=== PATIENT | female | born 1990 | race African-American/Black ===

== ENCOUNTER 2020-08-22 14:53 | Emergency (ER) | payer OTHER ==
[~2020-08-22] VITALS: Ht 167.6 cm; Wt 132.0 kg
[2020-08-22] MEDS ORDERED: KETOROLAC 30MG/ML VIAL IV STA (15:48)
[2020-08-22] MEDS ORDERED: SODIUM CHLORIDE 0.9% 1,000 ML IV ONE (16:00)
[2020-08-22 16:17] LABS: BASOPHILS % 0.5 % (0.0-2.0); EOSINOPHILS % 0.7 % (0.0-5.0); HEMOGLOBIN. 11.3 g/dL (12.0-16.0); LYMPHOCYTES % 29.4 % (20.0-50.0); MEAN CORPUSCULAR HEMOGLOBIN 28.3 pg (28.0-32.0); MEAN CORPUSCULAR VOLUME 84.9 fL (81.0-99.0); MEAN PLATELET VOLUME 8.9 fl (7.4-10.4); MONOCYTES % 4.8 % (2.0-8.0); NEUTROPHILS % 64.6 % (40.0-76.0); PLATELET 281 x1000/uL (130-400); RED BLOOD CELL COUNT 4.01 mill/uL (4.2-5.4)
[2020-08-22 16:20] LABS: CHLORIDE 110 mEq/L (98-107); HCG SCREEN NEGATIVE
[2020-08-22] MEDS ORDERED: DEXAMETHASONE 10 MG/ML VIAL IV ONE (19:45)
[2020-08-22] MEDS ORDERED: LEVETIRACETAM 500MG PREMIX 100 ML IV ONE (20:15)
[2020-08-22] MEDS ORDERED: IOHEXOL-350 100 ML BOTTLE ONE (20:32)
[2020-08-23] MEDS ORDERED: MORPHINE SULFATE 2 MG/ML CPJ (NOT FOR IM USE) IV ONE (07:30)
[2020-08-23 09:55] VITALS: BP 139/88
== END 2020-08-23 10:34 | disposition short-term general hospital (02) ==
LOC: ER 14:53
DX: R51.9 Headache, unspecified (principal); D33.2 Benign neoplasm of brain, unspecified; G91.9 Hydrocephalus, unspecified; F17.210 Nicotine dependence, cigarettes, uncomplicated
CPT/HCPCS: 36415; 70496; 70498; 71045; 80053; 84703; 85025; 93005; 96361; 96374; 96375; 99285; J1100; J1885; J1953; J7030; Q9967